=== PATIENT | male | born 1955 | race Two or more races ===

== ENCOUNTER 2023-04-24 18:32 | Emergency (ER) | payer OTHER ==
[~2023-04-24] VITALS: Ht 170.2 cm; Wt 88.0 kg
[2023-04-24 19:04] LABS: Basophils # (auto) 0.4 10 ^3/uL (0-0.2); Basophils % (auto) 2.8 % (0.0-2.0); Eosinophils # (auto) 1.2 10 ^3/uL (0-0.8); Eosinophils % (auto) 8.5 % (0.0-7.0); Hematocrit 41.4 % (41.0-53.0); Hemoglobin 13.7 g/dL (13.5-17.5); Lymphocytes # (auto) 3.3 10 ^3/uL (0.4-5.4); Lymphocytes % (auto) 23.2 % (10.0-50.0); Mean Corpuscular Hemoglobin 29.8 pg (28.0-32.0); Mean Corpuscular Hgb Conc. 33.2 g/dL (32.0-36.0); Mean Corpuscular Volume 89.9 fL (80.0-100.0); Monocytes # (auto) 0.8 10 ^3/uL (0-1.3); Monocytes % (auto) 5.7 % (0.0-12.0); Neutrophils # (auto) 8.5 10 ^3/uL (1.6-8.6); Neutrophils % (auto) 59.8 % (37.0-80.0); Red Blood Cells 4.61 10^6/uL (4.5-5.90); Red Cell Distribution Width 13.6 % (11.8-14.3); White Blood Cell 14.3 10^3/uL (4.4-10.8)
[2023-04-24] MEDS ORDERED: SODIUM CHLORIDE 0.9% 1,000 ML IVB ONE (19:15)
[2023-04-24] MEDS ORDERED: ONDANSETRON ODT 4 MG TAB PO ONE (19:15)
[2023-04-24 19:27] LABS: Albumin 3.5 g/dL (3.4-5.0); Calcium 9.1 mg/dL (8.5-10.1); Potassium 3.9 mmol/L (3.5-5.1)
[2023-04-24 19:31] LABS: BUN/Creatinine Ratio 17.9 (10.0-20.0); Bilirubin, Total 0.4 mg/dL (0.2-1.0); Total Protein 7.2 g/dL (6.4-8.2)
[2023-04-24 21:09] LABS: Urine Bacteria FEW /hpf (None Seen); Urine Blood 2+ /uL (Negative); Urine Mucus FEW (None Seen); Urine Specific Gravity 1.033 (1.001-1.035); Urine WBC 4 /hpf (0 - 3)
[2023-04-25 03:08] VITALS: BP 112/72
[2023-04-25] MEDS ORDERED: CIPR-173 PO (03:50)
[2023-04-25] MEDS ORDERED: cefTRIAXone SOD 1,000 MG VL IM ONE (04:00)
== END 2023-04-25 04:00 | disposition home or self-care (01) ==
LOC: ER 18:32
DX: N13.2 Hydronephrosis with renal and ureteral calculous obstruction (principal); D72.829 Elevated white blood cell count, unspecified; Z79.899 Other long term (current) drug therapy
CPT/HCPCS: 36415; 74177; 80053; 81001; 82150; 83605; 83690; 83735; 85025; 93005; 96360; 96372; 99285; J0696; J7030; Q0162; Q9967

== ENCOUNTER 2024-06-23 05:37 | Emergency (ER) | payer OTHER ==
[~2024-06-23] VITALS: Ht 170.2 cm; Wt 88.6 kg
[~2024-06-23 05:37] MED LIST: CIPR-173 PO
[2024-06-23] MEDS ORDERED: AUG875T PO (06:36)
[2024-06-23] MEDS: TETANUS-DIPTH-ACEL PERTUSSIS 0.5ML SYR Tdap IM ONE (07:37)
[2024-06-23 07:40] VITALS: BP 136/68; PULSE 88; RESP 18; TEMP 98.9; O2SAT 98
[2024-06-24] MEDS ORDERED: EPIN0.1I11 IJ (20:08)
[2024-06-24] MEDS ORDERED: PRED20TA2 PO (20:08)
[2024-06-24] MEDS ORDERED: CLIN1CAP70 PO (20:08)
== END 2024-06-23 07:44 | disposition home or self-care (01) ==
LOC: ER 05:37
DX: S31.133A Puncture wound of abdominal wall without foreign body, right lower quadrant without penetration into peritoneal cavity, initial encounter (principal); S31.153A Open bite of abdominal wall, right lower quadrant without penetration into peritoneal cavity, initial encounter; W54.0XXA Bitten by dog, initial encounter; Y93.89 Activity, other specified; Y92.89 Other specified places as the place of occurrence of the external cause; Y99.8 Other external cause status
CPT/HCPCS: 90471; 90715

== ENCOUNTER 2024-06-24 13:02 | Emergency (ER) | payer OTHER ==
[~2024-06-24] VITALS: Ht 170.2 cm; Wt 89.7 kg
[~2024-06-24 13:02] MED LIST changes: +AUG875T PO
[2024-06-24] MEDS: DexAMETHasone INJECTION 10 MG in D5W 5% 50 ML IV ONE (15:00)
[2024-06-24] MEDS: methylPREDNISolone SOD SUCC 125 MG/2 ML VL IV ONE (15:00)
[2024-06-24] MEDS: FAMOTIDINE (10MG/ML) 2ML VL IV ONE (15:00)
[2024-06-24] MEDS: diphenhdrAMINE HCL 50 MG/1 ML VL IV ONE (15:00)
[2024-06-24] MEDS: IPRATROPIUM BROM 0.5 MG/2.5ML INH SOL NEB ONE (15:05)
[2024-06-24] MEDS: ALBUTEROL SULF 2.5 MG/0.5ML(0.5%) NEB SOLN NEB ONE (15:05)
[2024-06-24 15:06] VITALS: PULSE 106; RESP 23; O2SAT 91
[2024-06-24 16:06] LABS: Basophils # (auto) 0 10 ^3/uL (0-0.2); Basophils % (auto) 0.1 % (0.0-2.0); Eosinophils # (auto) 0.1 10 ^3/uL (0-0.8); Eosinophils % (auto) 0.6 % (0.0-7.0); Hematocrit 46.4 % (41.0-53.0); Hemoglobin 15.2 g/dL (13.5-17.5); Lymphocytes # (auto) 2.1 10 ^3/uL (0.4-5.4); Lymphocytes % (auto) 19.4 % (10.0-50.0); Mean Corpuscular Hemoglobin 29.7 pg (28.0-32.0); Mean Corpuscular Hgb Conc. 32.7 g/dL (32.0-36.0); Mean Corpuscular Volume 90.8 fL (80.0-100.0); Monocytes # (auto) 0.4 10 ^3/uL (0-1.3); Monocytes % (auto) 3.4 % (0.0-12.0); Neutrophils # (auto) 8.4 10 ^3/uL (1.6-8.6); Neutrophils % (auto) 76.5 % (37.0-80.0); Nucleated Red Blood Cells % 0.1 %; Platelet Count (auto) 210 10^3/uL (140-450); Red Blood Cells 5.11 10^6/uL (4.5-5.90); Red Cell Distribution Width 17.2 % (11.8-14.3); White Blood Cell 10.9 10^3/uL (4.4-10.8)
[2024-06-24 16:21] LABS: Alanine Aminotransferase 36 U/L (7-40); Albumin 4.2 g/dL (3.2-4.8); Alkaline Phosphatase 112 U/L (46-116); Anion Gap 9 (5-15); Aspartate Aminotransferase 33 U/L (13-40); Bilirubin, Total 1.6 mg/dL (0.2-1.0); Blood Urea Nitrogen 20 mg/dL (9-23); Carbon Dioxide 21 mmol/L (20-30); Chloride 103 mmol/L (98-107); Glucose 102 mg/dL (74-106); Potassium 4.8 mmol/L (3.5-5.1); Sodium 133 mmol/L (136-145); Total Protein 6.5 g/dL (5.7-8.2)
[2024-06-24 16:50] LABS: Lactic Acid w/Reflex 2.3 mmol/L (0.4-2.0)
[2024-06-24 19:33] VITALS: O2SAT 95
[2024-06-24] MEDS ORDERED: EPIN0.1I11 IJ (20:08)
[2024-06-24] MEDS ORDERED: CLIN1CAP70 PO (20:08)
[2024-06-24] MEDS ORDERED: PRED20TA2 PO (20:08)
[2024-06-24 20:21] VITALS: BP 108/73; PULSE 83; RESP 12; TEMP 98; O2SAT 95
== END 2024-06-24 20:23 | disposition home or self-care (01) ==
LOC: ER 13:02
DX: L50.0 Allergic urticaria (principal); L29.9 Pruritus, unspecified; Z88.0 Allergy status to penicillin; Z88.1 Allergy status to other antibiotic agents; Z79.899 Other long term (current) drug therapy; X58.XXXA Exposure to other specified factors, initial encounter
CPT/HCPCS: 36415; 71045; 80053; 83605; 83735; 84484; 85025; 94640; 96365; 96375; 99285; J1100; J1200; J2919; J3490; J7060; 81001